=== PATIENT | female | born 1965 | race Two or more races ===

== ENCOUNTER 2020-03-06 05:15 | Inpatient (IN) | payer OTHER ==
[~2020-03-06 05:15] MED LIST: LEXAPRO5 MG PO; MAXIMUM D3325 MCG PO; METFORMIN HCL500 M3 PO; ZESTRIL20 MG PO; ZOCOR20 MG PO
[2020-03-07] MEDS ORDERED: BUPROPION XL300 MG (08:40)
[2020-03-07] MEDS ORDERED: CLONAZEPAM1 MG (08:40)
[2020-03-07] MEDS ORDERED: LISINOPRIL-HCT1 EAC1 (08:40)
== END 2020-03-15 16:39 | disposition home or self-care (01) | DRG 418 ==
LOC: CIR.AMB 05:15 → SURH 11:56 → O/R 11:56 → SURH 14:16
PROVIDERS: ADMIT Surgery; ATTEND Surgery
PROC: BF522Z0 Other Imaging of Gallbladder using Fluorescing Agent, Intraoperative (ICD-10-PCS; 2020-03-06)
PROC: 0FT44ZZ Resection of Gallbladder, Percutaneous Endoscopic Approach (ICD-10-PCS; principal; 2020-03-06 07:00)
PROC: CF1C1ZZ Planar Nuclear Medicine Imaging of Hepatobiliary System, All using Technetium 99m (Tc-99m) (ICD-10-PCS; 2020-03-07)
PROC: 0FJB8ZZ Inspection of Hepatobiliary Duct, Via Natural or Artificial Opening Endoscopic (ICD-10-PCS; 2020-03-09)
PROC: BF10YZZ Fluoroscopy of Bile Ducts using Other Contrast (ICD-10-PCS; 2020-03-09)
PROC: 0FJB8ZZ Inspection of Hepatobiliary Duct, Via Natural or Artificial Opening Endoscopic (ICD-10-PCS; 2020-03-14)
PROC: BF10YZZ Fluoroscopy of Bile Ducts using Other Contrast (ICD-10-PCS; 2020-03-14)
DX: K81.1 Chronic cholecystitis (principal); K91.89 Other postprocedural complications and disorders of digestive system; K91.61 Intraoperative hemorrhage and hematoma of a digestive system organ or structure complicating a digestive system procedure; I10 Essential (primary) hypertension; F32.9 Major depressive disorder, single episode, unspecified; E87.6 Hypokalemia; Y83.8 Other surgical procedures as the cause of abnormal reaction of the patient, or of later complication, without mention of misadventure at the time of the procedure

== ENCOUNTER → 2023-02-14 | Emergency (ER) | payer OTHER ==
[~2023-02-14] VITALS: Ht 157.5 cm; Wt 78.9 kg
[~2023-02-14] MED LIST changes: +BUPROPION XL300 MG; +CLONAZEPAM1 MG; +LISINOPRIL-HCT1 EAC1
[2023-02-14 15:15] LABS: HEMATOCRIT 36.2 % (36.0-45.00); HEMOGLOBIN 11.9 g/dL (12.0-15.00); MEAN CELL VOLUME 90.9 fL (80.00-100.00); MEAN CORPUSCULAR HEMOGLOBIN 29.9 pg (27.00-32.0); MEAN CORPUSCULAR HGB CONC 32.9 g/dl (32.0-36.0); PLATELET COUNT 319 K/uL (150-450); RED BLOOD COUNT 3.98 M/uL (4.00-6.00); RED CELL DISTRIBUTION WIDTH 13.9 % (11.5-14.5)
[2023-02-14 15:20] LABS: URINE APPEARANCE Clear; URINE BILIRRUBIN Negative (NEGATIVE); URINE BLOOD Negative; URINE COLOR Yellow; URINE GLUCOSE Negative (NEGATIVE); URINE LEUKOCYTE Small; URINE NITRATE Negative; URINE PROTEIN Negative (NEGATIVE); URINE UROBILINOGEN 0.2 E.U./dl
[2023-02-14 15:24] LABS: URINE BACTERIA 17.6 uL (0.0-1933); URINE EPITHELIAL CELLS 13.5 uL (0.0-38.8); URINE WBC 77.4 uL (0.0-23.2)
[2023-02-14 15:34] LABS: CALCIUM 8.8 mg/dL (8.5-10.1); CREATININE SERUM 0.76 mg/dL (0.55-1.02); GFR 77.89; POTASSIUM 3.69 mEq/L (3.5-5.1)
[2023-02-14 16:04] LABS: URINE RBC 1.2 uL (0.0-20.8)
== END | disposition left against medical advice (07) ==
LOC: ER 13:40
PROVIDERS: General Practice
DX: K52.89 Other specified noninfective gastroenteritis and colitis (principal); K45.8 Other specified abdominal hernia without obstruction or gangrene
CPT/HCPCS: 36415; 74177; 99284; Q9965